=== PATIENT | female | born 1960 | race Caucasian/White ===

== ENCOUNTER → 2024-02-12 09:47 | Outpatient (REF) | payer BC, SELFPAY | LOC: HWRAD 09:47 | PROVIDERS: ATTENDING PHYSICIAN Advanced Practice Midwife; FAMILY PHYSICIAN Nurse Practitioner Family | DX: R10.2 Pelvic and perineal pain (principal) | CPT/HCPCS: 76830; 76856 ==

== ENCOUNTER → 2024-03-08 11:40 | Outpatient (REF) | payer BC, SELFPAY | LOC: HWRAD 11:40 | PROVIDERS: ATTENDING PHYSICIAN Urology; FAMILY PHYSICIAN Nurse Practitioner Family | DX: N20.0 Calculus of kidney (principal) | CPT/HCPCS: 74176 ==

== ENCOUNTER 2024-03-14 06:21 | Day surgery (SDC) | payer BC, SELFPAY ==
[2024-02-29 08:06] VITALS: BMI 27.3
[2024-02-29 09:15] LABS: Calcium 10.6 mg/dl (8.4-10.2); Uric Acid 2.7 mg/dl (2.5-6.2)
[2024-02-29 09:17] LABS: INR 1.07; PT 13.9 Sec (11.4-14.6)
[2024-02-29 09:18] LABS: APTT 31.6 Sec (23.4-35.0)
[2024-03-02 10:25] LABS: Intact PTH 26.9 pg/ml (13.6-85.8)
[2024-03-14] VITALS (8 sets, daily range): BP systolic 114–180; BP diastolic 68–83; BMI 27.3
[2024-03-14] MEDS: NORMOSOL-R 1000 IV (10:35)
[2024-03-19 16:18] LABS: Stone Analysis Mass 25 mg
== END 2024-03-14 13:18 | disposition home or self-care (01) ==
LOC: SDS 06:21
PROVIDERS: ATTENDING PHYSICIAN Urology; FAMILY PHYSICIAN Nurse Practitioner Family
DX: N20.2 Calculus of kidney with calculus of ureter (principal)
CPT/HCPCS: 52356; 36415; 74018; 76000; 82365; 83970; 84550; 85610; 85730; 93005; C1769; C2617

== ENCOUNTER 2024-05-08 07:35 | Emergency (ER) | payer MEDICARE, SELFPAY ==
[2024-05-08 07:38] VITALS: BP 132/78
--- NOTE | 2024-05-08 08:21 | ED.GENMED ---
History of Present Illness
General
Chief Complaint: Musculo-Skeletal Complaint
Source: patient
Exam Limitations: none
Time Seen by Provider: 05/08/24 08:02
Nursing documentation reviewed up to this point in time: agreed with
History of Present Illness
History of Present Illness:
63 y/o F with h/o HTN, HLD, thyroid; dx of MS years ago but never had flare, no meds
here with left chest wall pain after fall 2 weeks ago when she tripped while carrying her phone under her L axilla
she llanded and has had pain ever since
she says the day usually starts out ok but by the end, the pain is aggravating
she takes motrin which doesn't really help
last week went to urgent care and had xray which she doesn't know if there were any findings because she doesn't have the report; she has tried calling a few times
she has not had any sob, pleuritic pain, nausea, vomiting, sweatiness, rash, weakness in arms or legs, neck pain
the pain is under left axilla (chest wall) and in front and back
Past History
Past History
ED Past Medical History: GERD, HTN, Hypercholesterolemia, Hypothyroidism and Other (MS, kidney stones)
ED Past Surgical History: and Urological
Social History
Tobacco: Former smoker
Alcohol: Occasional
Personal:
Living: with family
Family History
Family History: Early CAD (Dad age 53 of a heart attack)
Review of Systems
Review of Systems
Allergies reviewed?: Yes
All Other Systems: Not applicable
Phy Exam
Physical Exam
Physical Exam:
GENERAL: Alert , in no apparent distress
HEAD: NCAT
NECK: no midline tenderness, active ROM intact, no paraspinal muscle tenderness;
EYE: pupils equal and reactive, EOMs intact.
ENT: o/p clr, mmm. no hemotympanum
CARDIAC: Regular rate and rhythm, no edema
ribs: left sided mid axillary line tenderness #5, ,6 region no rash, no bruising
anterior ribs under breast nontender
posterior ribs nontender
LUNGS: Clear breath sounds bilaterally, no acute respiratory distress, no wheezes/rales/rhonchi, able to take a deep breath easily
ABDOMEN: Soft, without focal tenderness, no r/g, no cvat
NEUROLOGICAL: Alert and oriented, no focal neuro deficits, CN intact, 5/5 strength, sensation intact
SKIN: Warm and dry, no bruising, no rash
MUSCULOSKELETAL: No edema, well perfused.
PSYCH: Normal and appropriate interaction.
Course
Orders/Labs/Results
Orders:
Orders
05/08/24 08:19
Electrocardiogram (*1) Urgent
Reason for Study: Chest Pain
EKG- Treatment ONCE
CR Ribs-left 3 Vw W/pa Chest Urgent
Comment:
Reason For Exam: left rib pain after fall, pain not improving
05/08/24 08:40
Ketorolac [Toradol] 15 mg IV NOW STA
05/08/24 09:09
Complete Blood Count/With Diff Urgent
Comprehensive Metabolic Panel Urgent
Lipase Urgent
Troponin I Urgent
Abnormal Lab Results
05/08/24
09:09
Neutrophils % 41.9 L %
(42.2-75.2)
Eosinophils % 8.2 H %
(0-6)
05/08/24 09:09
Vital Signs
Initial and Last Documented VS:
Initial Vital Signs
Temp Pulse Resp BP Pulse Ox
98.3 F 76 16 132/78 98
05/08/24 07:38 05/08/24 07:38 05/08/24 07:38 05/08/24 07:38 05/08/24 07:38
Last Documented Vital Signs
Temp Pulse Resp BP Pulse Ox
98.3 F 76 18 132/78 98
05/08/24 07:38 05/08/24 07:38 05/08/24 09:12 05/08/24 07:38 05/08/24 07:38
ED Attending Note
-
Portions of this chart may have been created with voice recognition software.� Occasional wrong word or��sound alike� substitutions may have occurred due to the inherent limitations of voice recognition software.
Discharge Plan
Departure
Prescriptions:
No Action
omeprazole 40 MG capsule,delayed release(DR/EC)
40 mg PO DAILY
Fenofibrate
134 mg PO HS
Patient Comments:
pt unsure of dose
Synthroid:
137 mcg PO DAILY
Patient Comments:
pt unsure of dose
coenzyme [id number] E 1 CAP capsule
1 cap PO HS
atorvastatin 20 mg Tablet
20 mg PO HS
amlodipine 5 mg Tablet
5 mg PO HS
irbesartan 75 mg Tablet
75 mg PO HS
bupropion HCl [Wellbutrin XL] 300 mg Tablet Extended Release 24 Hr
300 mg PO DAILY
Emgality Syringe 120 mg/mL Syringe
120 mg SC QMONTH
Referrals:
Jacky Vincent CRNP [Family Provider] -
Interventions
Interventions:
ED-Musculoskeletal Assessment Last Done: 05/08/24 08:31
Discharge Date and Time
Print Language: GUAMANIAN
[2024-05-08] MEDS: TORADOL 15 MG IV (09:15)
[2024-05-08 09:28] LABS: % Basophils 1.3 % (0-2); % Eosinophils 8.2 % (0-6); % Immature Granulocytes 0.2 % (0-0.5); % Lymphocytes 41.1 % (20.5-51.1); % Monocytes 7.3 % (1.7-9.3); % Neutrophils 41.9 % (42.2-75.2); Absolute Basophils 0.1 10^3/uL (0-0.2); Absolute Eosinophils 0.5 10^3/uL (0-0.7); Absolute Lymphocytes 2.3 10^3/uL (1.2-3.4); Absolute Monocytes 0.4 10^3/uL (0.1-0.6); Absolute Neutrophils 2.3 10^3/uL (1.4-6.5); Hematocrit 39.8 % (37.0-47.0); Hemoglobin 13.8 g/dL (12.0-16.0); Mean Corp Hgb Conc. 34.7 g/dL (33.0-37.0); Mean Corpuscular Hgb 30.3 pg (27.0-31.0); Mean Corpuscular Volume 87.5 fL (81.0-99.0); Mean Platelet Volume 9.8 fL (7.4-10.4); Nucleated Red Blood Cells % 0 %; Platelet Count 352 10^3/uL (130-400); Red Blood Cell Count 4.55 10^6/uL (4.20-5.40); Red Cell Dist. Width 13.1 % (11.5-14.5); White Blood Cell Count 5.6 10^3/uL (4.8-10.8)
[2024-05-08 09:45] LABS: ALT (SGPT) 47 U/L (0-35); AST (SGOT) 45 U/L (14-36); Albumin 4.6 g/dl (3.5-5.0); Alkaline Phosphatase 61 U/L (38-126); Blood Urea Nitrogen 19 mg/dl (7-17); Calcium 10.4 mg/dl (8.4-10.2); Carbon Dioxide 24 mmol/L (22-30); Chloride 106 mmol/L (98-107); Glucose 90 mg/dl (70-99); Potassium 4.3 mmol/L (3.5-5.1); Sodium 140 mmol/L (135-145); Total Bilirubin 0.5 mg/dl (0.2-1.3); Total Protein 6.9 g/dl (6.3-8.2); eGFR > 60.00
[2024-05-08 09:49] LABS: Lipase 84 U/L (23-300)
[2024-05-08 09:55] LABS: Troponin I < 0.012 ng/ml
[2024-05-08 10:20] VITALS: BP 140/77
== END 2024-05-08 10:37 | disposition home or self-care (01) ==
LOC: EMR 07:35
PROVIDERS: Physician Assistant; EMERGENCY PHYSICIAN Emergency Medicine; FAMILY PHYSICIAN Nurse Practitioner Family
DX: S20.20XA Contusion of thorax, unspecified, initial encounter (principal); W18.30XA Fall on same level, unspecified, initial encounter; I10 Essential (primary) hypertension; E78.00 Pure hypercholesterolemia, unspecified; G35 Multiple sclerosis; K21.9 Gastro-esophageal reflux disease without esophagitis; E03.9 Hypothyroidism, unspecified; Z87.891 Personal history of nicotine dependence
CPT/HCPCS: 99283; 96374; 71101; 80053; 83690; 84484; 85025; 93005